=== PATIENT | male | born 1965 | race Caucasian/White ===

== ENCOUNTER 2018-07-27 17:17 | Inpatient (IN) | payer OTHER ==
[~2018-07-27] VITALS: Ht 165.1 cm; Wt 93.9 kg
[2018-07-27 17:53] VITALS: BP 164/88
--- NOTE | 2018-07-27 17:59 | NUR ---
PT AMBULATED TO LOBBY WITH VSS.
[2018-07-27 18:59] LABS: BASOPHILS # (AUTO) 0.2 K/uL (0.00-0.22); BASOPHILS % (AUTO) 1.8 % (0.0-2.0); EOSINOPHILS # (AUTO) 2.1 K/uL (0-0.4); EOSINOPHILS % (AUTO) 24.4 % (0.0-4.0); HEMATOCRIT 47.5 % (36-52); HEMOGLOBIN 15.9 g/dL (12.0-18.0); LYMPHOCYTES # (AUTO) 3.5 K/uL (2.0-11.5); LYMPHOCYTES % (AUTO) 40.6 % (20.5-51.1); MEAN CORPUSCULAR HEMOGLOBIN 29 pg (27-31); MEAN CORPUSCULAR HGB CONC 33 g/dL (33-37); MEAN CORPUSCULAR VOLUME 87.8 fL (80-94); MONOCYTES % (AUTO) 11.8 % (1.7-9.3); NEUTROPHILS # (AUTO) 1.9 K/uL (1.8-7.7); NEUTROPHILS % (AUTO) 21.4 % (42.2-75.2); PLATELET COUNT (AUTO) 141 K/uL (140-450); RED BLOOD CELL COUNT(AUTO) 5.41 MIL/uL (4.20-6.10); RED CELL DISTRIBUTION WIDTH 12.9 % (11.6-13.7); WHITE BLOOD COUNT (AUTO) 8.7 K/uL (4.8-10.8)
[2018-07-27 19:08] LABS: ANION GAP 12.8 (8-16); CARBON DIOXIDE 26.1 mmol/L (21-32); CREATININE 0.7 mg/dL (0.7-1.3); POTASSIUM 3.9 mmol/L (3.5-5.1)
--- NOTE | 2018-07-27 19:52 | NUR ---
PT TO ER BED 11
--- NOTE | 2018-07-27 20:00 | NUR ---
PATIENT PRESENTS TO ED WITH C/O R LEG, CELLULITIS X 1 WEEK +ERYTHEMA X 1 DAY. PT DENIES N/V/D; SKIN IS PINK/WARM/DRY; AAOX4 WITH EVEN AND STEADY GAIT; LUNGS CLEAR BL; HR EVEN AND REGULAR; PT DENIES ANY FEVER, CP, SOB, OR COUGH AT THIS TIME; PATIENT STATES PAIN OF 8/10 AT THIS TIME; VSS; PATIENT POSITIONED FOR COMFORT; HOB ELEVATED; BEDRAILS UP X2; BED DOWN. ER MD MADE AWARE OF PT STATUS.
[2018-07-27] MEDS ORDERED: NACL 0.9% 1,000 ML IV ONE (21:28)
[2018-07-27] MEDS ORDERED: VANCOMYCIN 1,000 MG in DEXTROSE 5% 250 ML IV ONE (21:30)
--- NOTE | 2018-07-27 21:45 | NUR ---
PHLEB AT BEDSIDE DRAWING BLOOD/CULTURES
--- NOTE | 2018-07-27 21:58 | NUR ---
REVIEWED INDUCE SPUTUM CULTURE ORDER WITH DR EDIN PERALTA
[2018-07-27 22:06] LABS: ANION GAP 13.4 (8-16); CARBON DIOXIDE 25.6 mmol/L (21-32); CREATININE 0.7 mg/dL (0.7-1.3)
[2018-07-27 22:11] LABS: PROTHROMBIN TIME 11.4 secs (10.8-13.4)
[2018-07-27 22:12] LABS: ALBUMIN 3.7 g/dL (3.4-5.0); TOTAL BILIRUBIN 0.9 mg/dL (0.0-1.0)
[2018-07-27] MEDS ORDERED: VANCOMYCIN 1,000 MG VIAL ONE (22:15)
--- NOTE | 2018-07-27 23:56 | NUR ---
PATIENT CURRENTLY RESTING IN GURNEY, IN POSITION OF COMFORT. PATIENT GCS 15, AAOX4, BREATHING IS EVEN AND UNLABORED, EQUAL RISE AND FALL OF CHEST, NO ACUTE DISTRESS NOTED. PATIENT UPDATED WITH PLAN OF CARE, WILL CONTINUE TO MONITOR
[2018-07-28] LABS: APPEARANCE,URINE CLEAR (CLEAR); BILIRUBIN,URINE NEGATIVE (NEGATIVE); BLOOD, URINE NEGATIVE (NEGATIVE); COLOR,URINE YELLOW (YELLOW); LEUKOCYTE ESTERASE ,URINE NEGATIVE (NEGATIVE); NITRITE, URINE NEGATIVE (NEGATIVE); PH,URINE 5.5 (5.0-9.0); UGLUCOSE 3+ (NEGATIVE)
[2018-07-28 00:25] LABS: RBC,URINE 0-5 /HPF (0-5); WBC,URINE 0-5 /HPF (0-5)
[2018-07-28] MEDS ORDERED: ONDANSETRON 4 MG/2 ML VIAL IVP PRN (02:05)
[2018-07-28] MEDS ORDERED: LORazepam 2 MG/ML VIAL IVP PRN (02:05)
[2018-07-28] MEDS ORDERED: ACETAMINOPHEN 325 MG TAB PO PRN (02:05)
[2018-07-28] MEDS ORDERED: MORPHINE SULFATE 4 MG/ML SYR IVP PRN (02:05)
[2018-07-28] MEDS ORDERED: DEXTROSE 50% 50 ML SYR IVP PRN (02:15)
--- NOTE | 2018-07-28 02:58 | NUR ---
Patient will be admitted to care of RAYMUNDO. Admited to MS. Will go to room 108B. Belongings list completed. Report to MARYANN WELCH.
--- NOTE | 2018-07-28 03:00 | NUR ---
PT RECEIVED FROM KRISTEN CASE MANAGEMENT MANAGER NURSE. PT BROUGHT UP BY W/C TO ROOM 107 AND AMBULATED TO BED B WITH STEADY GAIT. PT IS AOX4 AND MALAWIAN SPEAKING PT CONTINENT OF B/B. HE HAS A DECOLORATION AND SMALL OPENING ON R LOWER LEG. MEASUREMENT IS 1CM X1CM AREA SCABBED WITH NO DRAINAGE. PT HAS IV SITE 22G ON R HAND AND FLUSHED PATENT. MRSA SWAB DONE.
[2018-07-28] MEDS: MORPHINE SULFATE 2 MG/ML SYR IVP PRN ×2 (04:17→20:46)
--- NOTE | 2018-07-28 04:30 | NUR ---
PT IN BED SIDE RAILS UP X2 AND BED IN LOW POSITION. PT C/O OF MODERATE PAIN GIVEN MORPHINE ORDERED FOR 09/28 PAIN. PT HAS IV FLUID OF N/S RUNNING AT 80MLS/HR. V/S IN NORMAL RANGE. ZOSYN HUNG ORDERED.
[2018-07-28 04:49] VITALS: BP 142/87
[2018-07-28] MEDS ORDERED: PIPERACILLIN/TAZOBACTAM 3.375 GM in DEXTROSE 5% 50 ML IV SCH (05:00)
[2018-07-28] MEDS: NACL 0.9% 1,000 ML IV SCH ×2 (05:24→14:35)
[2018-07-28] MEDS ORDERED: PIPERACILLIN/TAZOBACTAM 3.375 GM VIAL IV ONE (05:35)
--- NOTE | 2018-07-28 06:00 | NUR ---
F/S IS 174 PT GIVEN 4 UNITS OF HUMALOG PROTOCOL. NO S/S OF PAIN OR DISTRESS NOTED.
[2018-07-28] MEDS ORDERED: HYDROcodone/APAP 5/325 MG 1 TAB TAB ONE (06:26)
[2018-07-28] MEDS: BLOOD GLUCOSE MONITORING 1 DEV DEV FS SCH ×4 (06:29→20:40)
[2018-07-28] MEDS: INSULIN LISPRO SLIDING SCALE 100 UNITS/ML VIAL SUBQ PRN ×3 (06:32→20:49)
--- NOTE | 2018-07-28 07:25 | NUR ---
REPORT GIVEN TO EYAL WELCH DAYSHIFT NURSE AT BEDSIDE FOR CONTINUITY OF CARE, PT IN STABLE CONDITION.
--- NOTE | 2018-07-28 07:30 | NUR ---
RECEIVED HANDOFF REPORT FROM OIM ARCHITECT NURSE. PT IS AWAKE IN BED. IVF ARE INFUSING IV SITE SHOWS NO SIGNS OF INFILTRATION. ALL SAFETY MEASURES ARE IN PLACE. WILL CONTINUE TO MONITOR.
--- NOTE | 2018-07-28 08:22 | NUR ---
PATIENT HAS BEEN SCREENED AND CATEGORIZED MODERATE NUTRITION RISK. PATIENT WILL BE SEEN WITHIN 3-5 DAYS OF ADMISSION. 07/31/18JAN [address]
[2018-07-28 08:28] VITALS: BP 136/87
[2018-07-28] MEDS: ENOXAPARIN 40 MG/0.4 ML SYR SUBQ SCH (08:54)
--- NOTE | 2018-07-28 09:30 | NUR ---
FREQUENT ROUNDING ON PT. PT IS STABLE AND AWAKE IN BED, NO SIGNS OF DISTRESS. PT APPEARS IN STABLE CONDITION. IV INFUSING NS@ 80ML/HR. IV SITE IS PATENT AND NO SIGNS OF INFILTRATION. WILL CONTINUE TO MONITOR.
[2018-07-28] MEDS ORDERED: glipiZIDE 5 MG TAB PO SCH (10:51)
[2018-07-28] MEDS ORDERED: LISINOPRIL 20 MG TAB PO SCH (10:52)
--- NOTE | 2018-07-28 11:30 | NUR ---
FINGERSTICK BLOOD GLUCOSE 222. ADMINISTERED 4UNITS OF HUMALOG PER SLIDING SCALE. PT IS AWAKE IN BED AND STABLE. ALL SAFETY MEASURES ARE IN PLACE. WILL CONTINUE TO MONITOR.
--- NOTE | 2018-07-28 13:30 | NUR ---
FREQUENT ROUNDING ON PT. PT AWAKE IN BED RESTING QUIETLY. PT IS STABLE AND APPEARS IN NO DISTRESS, IV INFUSING AT 80ML/HR. IV SITE SHOWS NO SIGNS OF INFILTRATION. ALL SAFETY MEASURES ARE IN PLACE. WILL CONTINUE TO MONITOR.
--- NOTE | 2018-07-28 16:38 | NUR ---
FREQUENT ROUNDING ON PT. PT IS STABLE AND RESTING QUIETLY IN BED. IV IS INFUSING AT 80ML/HR. IV SITE SHOWS NO SIGN OF INFILTRATION. ALL SAFETY MEASURES ARE IN PLACE, WILL CONTINUE TO MONITOR.
[2018-07-28] MEDS: metFORMIN 850 MG TAB PO SCH (17:16)
--- NOTE | 2018-07-28 18:39 | NUR ---
FREQUENT ROUNDING ON PT. PT SITTING UP IN CHAIR IN ROOM EATING DINNER. IV IS INFUSING AT 80ML/HR WITH NO SIGNS OF INFILTRATION. PT HAD NO COMPLAINTS OF PAIN. PT IS STABLE AND APPEARS IN NO APPARENT DISTRESS. ALL SAFETY MEASURES ARE IN PLACE.
--- NOTE | 2018-07-28 19:26 | NUR ---
ENDORSED NIGHTSHIFT NURSE AT PT BEDSIDE. PT IS AWAKE IN BED AND APPEARS STABLE AND IN NO APPARENT DISTRESS.
--- NOTE | 2018-07-28 19:27 | NUR ---
RECEIVED BEDSIDE REPORT FROM WARE DRESSER NURSE. PT IS AWAKE IN BED, ABLE TO AMBULATE W/ ASSISTANCE. W/ IVF ON R HAND G 22. INFUSING WELL,IV SITE SHOWS NO SIGNS OF INFILTRATION. ALL SAFETY MEASURES ARE IN PLACE. WILL CONTINUE TO MONITOR.
--- NOTE | 2018-07-28 20:50 | NUR ---
PAIN MEDS GIVEN ORDERED. C/O 09/28 PAIN R LEG
--- NOTE | 2018-07-28 23:00 | NUR ---
FREQUENT ROUNDING DONE, PT TRYING TO SLEEP. NO COMPLAINTS AT THIS TIME
--- NOTE | 2018-07-29 01:36 | NUR ---
FREQUENT ROUNDING DONE, PT SLEEPING.NO COMPLAINTS AT THIS TIME.
[2018-07-29] MEDS: NACL 0.9% 1,000 ML IV SCH ×3 (03:05→21:09)
[2018-07-29] MEDS: INSULIN LISPRO SLIDING SCALE 100 UNITS/ML VIAL SUBQ PRN ×2 (06:08→16:53)
[2018-07-29] MEDS: BLOOD GLUCOSE MONITORING 1 DEV DEV FS SCH ×4 (06:11→20:56)
[2018-07-29] MEDS: MORPHINE SULFATE 2 MG/ML SYR IVP PRN (06:17)
[2018-07-29] MEDS ORDERED: glipiZIDE 5 MG TAB PO SCH (06:30)
[2018-07-29 07:02] LABS: BASOPHILS # (AUTO) 0.1 K/uL (0.00-0.22); BASOPHILS % (AUTO) 1.9 % (0.0-2.0); EOSINOPHILS # (AUTO) 1.8 K/uL (0-0.4); EOSINOPHILS % (AUTO) 26.2 % (0.0-4.0); HEMATOCRIT 46.6 % (36-52); HEMOGLOBIN 15.7 g/dL (12.0-18.0); LYMPHOCYTES # (AUTO) 2.8 K/uL (2.0-11.5); LYMPHOCYTES % (AUTO) 41.2 % (20.5-51.1); MEAN CORPUSCULAR HEMOGLOBIN 30 pg (27-31); MEAN CORPUSCULAR HGB CONC 34 g/dL (33-37); MEAN CORPUSCULAR VOLUME 89.1 fL (80-94); MONOCYTES # (AUTO) 0.6 K/uL (0.8-1.0); MONOCYTES % (AUTO) 8.6 % (1.7-9.3); NEUTROPHILS # (AUTO) 1.5 K/uL (1.8-7.7); NEUTROPHILS % (AUTO) 22.1 % (42.2-75.2); PLATELET COUNT (AUTO) 132 K/uL (140-450); RED BLOOD CELL COUNT(AUTO) 5.23 MIL/uL (4.20-6.10); WHITE BLOOD COUNT (AUTO) 6.8 K/uL (4.8-10.8)
[2018-07-29 07:24] LABS: ANION GAP 12.6 (8-16); POTASSIUM 4.6 mmol/L (3.5-5.1)
[2018-07-29 07:25] LABS: CREATININE 0.6 mg/dL (0.7-1.3)
[2018-07-29 07:26] LABS: ALBUMIN 3.3 g/dL (3.4-5.0); MAGNESIUM 1.7 mg/dL (1.8-2.4); TOTAL BILIRUBIN 1.1 mg/dL (0.0-1.0)
--- NOTE | 2018-07-29 07:32 | NUR ---
RECEIVED BEDSIDE REPORT FROM SALES ADMINISTRATION MANAGER RN FOR CONTINUITY OF CARE. PT IN STABLE CONDITION. STATES TOLERABLE 5/10 PAIN AT RT LEG- CELLULITIS. NO S/S DISTRESS. RESPIRATIONS EVEN AND UNLABORED. HEART RHYTHM REGULAR. ACTIVE BS IN ALL QUADRANTS. ABDOMEN SOFT AND NON-DISTENDED. SKIN INTACT. PT IS AMBULATORY WITHOUT ASSIST. IV SITE PATENT AND ASYMPTOMATIC, INFUSING IVF PER MD ORDERS. ALL SAFETY PRECAUTIONS IN PLACE, WILL CONTINUE TO MONITOR.
[2018-07-29 08:00] VITALS: BP 149/87
[2018-07-29] MEDS: LISINOPRIL 20 MG TAB PO SCH (08:39)
[2018-07-29] MEDS: metFORMIN 850 MG TAB PO SCH ×2 (08:39→16:42)
[2018-07-29] MEDS: ENOXAPARIN 40 MG/0.4 ML SYR SUBQ SCH (08:40)
--- NOTE | 2018-07-29 09:11 | NUR ---
NOTIFIED DR. VELEZ OF MG2+ 1.7. RECEIVED ORDERS.
[2018-07-29] MEDS ORDERED: MAG SULF 2000 MG/WATER PREMIX 50 ML IV SCH (10:00)
--- NOTE | 2018-07-29 10:07 | NUR ---
CM NOTE I SPOKE WITH ARABELLA OF [facility]# [phone] TO SET UP PATIENT'S OUTPATIENT FOLLOW UP APPOINTMENT. THE PATIENT WILL BE SEEN BY DR. QING ANTONIO'S FUNDS TRANSFER CLERK TIERNEY (BECAUSE DR. ANTONIO'S SCHEDULE IS BOOKED UNTIL THE END OF AUGUST) ON AUGUST 03, 2018 2:00 PM AT THE CLINIC AT [address] [place] [address]. I GAVE THE PATIENT HIS OUTPATIENT FOLLOW UP SCHEDULE.
--- NOTE | 2018-07-29 12:03 | NUR ---
PATIENT SITTING UP IN BED, NO C/O PAIN OR DISCOMFORT. ALL SAFETY PRECAUTIONS IN PLACE, WILL CONTINUE TO MONITOR.
--- NOTE | 2018-07-29 14:28 | NUR ---
PT SLEEPING IN BED, RESPIRATIONS EVEN AND UNLABORED. ALL SAFETY PRECAUTIONS IN PLACE, WILL CONTINUE TO MONITOR.
[2018-07-29 16:00] VITALS: BP 129/78
[2018-07-29] MEDS: glipiZIDE 5 MG TAB PO SCH (16:42)
--- NOTE | 2018-07-29 16:59 | NUR ---
PATIENT STATES TOLERABLE RLE PAIN, DENIES NEED FOR PAIN MEDICATION.
--- NOTE | 2018-07-29 19:10 | NUR ---
ENDORSED POC TO SURGEON/PRESIDENT RN. PT IN STABLE CONDITION.
--- NOTE | 2018-07-29 19:12 | NUR ---
RECEIVED BEDSIDE REPORT FROM AM SHIFT NURSE. PT IS AWAKE IN BED, ABLE TO AMBULATE W/ ASSISTANCE. W/ IVF ON R HAND G 22. INFUSING WELL, IV SITE SHOWS NO SIGNS OF INFILTRATION. ALL SAFETY MEASURES ARE IN PLACE. WILL CONTINUE TO MONITOR.
--- NOTE | 2018-07-29 20:56 | NUR ---
BS LEVEL TAKEN 129MG/DL, NO INSULIN COVERAGE. PT TRYING TO SLEEP IN BED SUPINE. NO PAIN, NO SIGNS OF DISTRESS.
--- NOTE | 2018-07-30 03:15 | NUR ---
CHECKED ON PT, PT AWAKE, TALKING TO HIS ROOMMATE AT A- BED. PT NO COMPLAINTS OF PAIN NOR RESPIRATORY DISTRESS AT THIS TIME.
[2018-07-30 04:00] VITALS: BP 134/80
[2018-07-30] MEDS: BLOOD GLUCOSE MONITORING 1 DEV DEV FS SCH (06:33)
[2018-07-30] MEDS: glipiZIDE 5 MG TAB PO SCH (06:34)
--- NOTE | 2018-07-30 07:20 | NUR ---
ENDORSED TO NEXT SHIFT FOR CONTINUITY OF CARE. PT IN STABLE CONDITION AT THIS TIME.
--- NOTE | 2018-07-30 07:48 | NUR ---
ENDORSED TO NEXT SHIFT FOR CONTINUITY OF CARE. PT IN STABLE CONDITION AT THIS TIME. Addendum: 07/30/18 at 0750 by Sandy Loomis RN PLS DELETE NOTE. WRONG TIME.
--- NOTE | 2018-07-30 07:50 | NUR ---
RECEIVED BEDSIDE REPORT FROM RESERVOIR CARETAKER RN FOR CONTINUITY OF CARE. PT IN STABLE CONDITION. NO C/O PAIN OR DISCOMFORT AT THIS TIME. NO S/S DISTRESS. RESPIRATIONS EVEN AND UNLABORED. HEART RHYTHM REGULAR. ACTIVE BS IN ALL QUADRANTS. ABDOMEN SOFT AND NON-DISTENDED. RLL CELLULITIS WITH SCAB. PT IS AMBULATORY WITHOUT ASSIST. IV SITE PATENT AND ASYMPTOMATIC, INFUSING IVF PER MD ORDERS. ALL SAFETY PRECAUTIONS IN PLACE, WILL CONTINUE TO MONITOR.
[2018-07-30] MEDS: metFORMIN 850 MG TAB PO SCH (08:56)
[2018-07-30] MEDS: LISINOPRIL 20 MG TAB PO SCH (08:56)
[2018-07-30] MEDS: ENOXAPARIN 40 MG/0.4 ML SYR SUBQ SCH (08:57)
--- NOTE | 2018-07-30 09:06 | NUR ---
PAGED DR. YEUNG- NO CBC OR CMP ORDERED FOR AM LABS TODAY.
--- NOTE | 2018-07-30 09:11 | NUR ---
PER DR. YEUNG, NO NEED TO ORDER AM LABS.
[2018-07-30] MEDS ORDERED: GLIP5TAB4 PO (10:01)
[2018-07-30] MEDS ORDERED: METF500T PO (10:01)
[2018-07-30] MEDS ORDERED: CLIN300C2 PO (10:01)
--- NOTE | 2018-07-30 10:13 | NUR ---
RECEIVED D/C ORDER. PT IS AWARE. PT STATES HE WILL CALL SON TO PICK HIM UP. ASKED PT TO INFORM ME OF ETA PICKUP AFTER HE SPEAKS WITH SON.
--- NOTE | 2018-07-30 10:30 | NUR ---
PATIENT STATES HIS FLU VACCINE AND PNEUMOVAX UP TO DATE.
--- NOTE | 2018-07-30 11:25 | NUR ---
DISCHARGE PAPERWORK, INCLUDING F/U APPOINTMENT DETAILS, GIVEN TO PATIENT. NEW PRESCRIPTION/MEDICATION TEACHING AND MEDICATION RECONCILIATION TEACHING GIVEN TO PATIENT. PHOTO TAKEN OF RLE CELLULITIS. CARE FOR CELLULITIS TEACHING GIVEN. PT IS SWISS AND HUNGARIAN SPEAK BUT PREFERS SWISS. PREFERS FAMILY MEMBER AT BEDSIDE TO TRANSLATE. PATIENT AND FAMILY MEMBER AT BEDSIDE VERBALIZED COMPLETE UNDERSTANDING OF ALL D/C TEACHING. IV SITE REMOVED WITH MINIMAL BLOOD LOSS AND LUMEN COMPLETELY INTACT. ID BANDS REMOVED. ALL PERSONAL BELONGINGS ARE WITH PATIENT. PATIENT DISCHARGED WILL GO HOME WITH FAMILY MEMBER VIA PRIVATE VEHICLE.
== END 2018-07-30 11:25 | disposition home or self-care (01) | DRG 383 ==
LOC: MED 17:17 → MTU 07-28 02:11
PROVIDERS: ADMIT Internal Medicine Pulmonary Disease; ATTEND Internal Medicine Pulmonary Disease
DX: L03.115 Cellulitis of right lower limb (principal); E11.65 Type 2 diabetes mellitus with hyperglycemia; E66.9 Obesity, unspecified; E78.5 Hyperlipidemia, unspecified; I10 Essential (primary) hypertension; Z91.14 Patient's other noncompliance with medication regimen; Z89.021 Acquired absence of right finger(s); Z68.34 Body mass index [BMI] 34.0-34.9, adult
CPT/HCPCS: 36415; 36600; 71045; 73590; 80048; 80053; 81001; 82803; 82948; 83036; 83605; 83735; 85025; 85610; 85651; 85730; 86140; 87040; 87081; 87086; 96365; 96366; 99285; J0696; J1650; J1815; J2270; J2543; J3370; J3475; J7030; J7060; Q0092

== ENCOUNTER 2020-02-20 16:05 | Emergency (ER) | payer OTHER ==
[~2020-02-20] VITALS: Ht 167.6 cm; Wt 93.9 kg
[~2020-02-20 16:05] MED LIST: CLIN300C2 PO; GLIP5TAB4 PO; METF500T PO
[2020-02-20 16:21] VITALS: BP 158/100
--- NOTE | 2020-02-20 16:30 | NUR ---
C/O LEFT HANSEN PAIN X2 WEEKS R/T CELLULITIS S/P PIECE OF METAL HITTING HANSEN DURING YARD WORK, PAIN IS 5/10. AREA IS INFLAMED/SWOLLEN AND RED. DENIES FEVER/CHILLS
--- NOTE | 2020-02-20 16:51 | NUR ---
XRAY IS AT BEDSIDE.
[2020-02-20 17:30] VITALS: BP 133/85
--- NOTE | 2020-02-20 17:30 | NUR ---
Patient discharged with v/s stable. Written and verbal after care instructions given and explained. Patient alert, oriented and verbalized understanding of instructions. Ambulatory with steady gait. All questions addressed prior to discharge. ID band removed. Patient advised to follow up with PMD. Rx of Mupirocin, Naprosyn, and cephalexin given. Patient educated on indication of medication including possible reaction and side effects. Opportunity to ask questions provided and answered.
== END 2020-02-20 17:30 | disposition home or self-care (01) ==
LOC: MED 16:05
DX: L03.116 Cellulitis of left lower limb (principal); E11.9 Type 2 diabetes mellitus without complications; I10 Essential (primary) hypertension; Z79.84 Long term (current) use of oral hypoglycemic drugs; Z79.899 Other long term (current) drug therapy
CPT/HCPCS: 73590; 82948; 99283; Q0092

== ENCOUNTER 2020-03-20 16:59 | Emergency (ER) | payer OTHER ==
[~2020-03-20] VITALS: Ht 172.7 cm; Wt 92.1 kg
[2020-03-20 17:10] VITALS: BP 113/80
--- NOTE | 2020-03-20 17:30 | NUR ---
C/O SCAB TO HANSEN X2 MONTHS, MILDLY PAINFUL 05/31. PT STATES HE SAW HIS PCP AND WAS TOLD IT WILL GO AWAY ON ITS OWN. DENIES FEVER.
--- NOTE | 2020-03-20 17:52 | NUR ---
Patient discharged with v/s stable. Written and verbal after care instructions given and explained. Patient alert, oriented and verbalized understanding of instructions. Ambulatory with steady gait. All questions addressed prior to discharge. ID band removed. Patient advised to follow up with PMD. Rx of BACITRACIN & KEFLEX given. Patient educated on indication of medication including possible reaction and side effects. Opportunity to ask questions provided and answered.
[2020-03-20 17:53] VITALS: BP 113/80
== END 2020-03-20 17:52 | disposition home or self-care (01) ==
LOC: MED 16:59
DX: L98.499 Non-pressure chronic ulcer of skin of other sites with unspecified severity (principal); E11.9 Type 2 diabetes mellitus without complications; I10 Essential (primary) hypertension; Z79.84 Long term (current) use of oral hypoglycemic drugs; Z79.899 Other long term (current) drug therapy
CPT/HCPCS: 82948; 99283

== ENCOUNTER 2021-11-09 06:48 | Emergency (ER) | payer OTHER ==
[~2021-11-09] VITALS: Ht 162.6 cm; Wt 87.7 kg
[~2021-11-09 06:48] MED LIST changes: +GLIP5TAB14 PO; -GLIP5TAB4 PO; +METF-346 PO; -METF500T PO
[2021-11-09 06:55] VITALS: BP 180/106
--- NOTE | 2021-11-09 07:06 | NUR ---
pt to bed 11.
--- NOTE | 2021-11-09 07:09 | NUR ---
ermd at bedside.
--- NOTE | 2021-11-09 07:49 | NUR ---
56 Y/O MAN BIB SELF WITH C/O LEFT EAR PAIN WITH DECREASED HEARING ABILITY. PT STATES THE PAIN OCCURED YESTERDAY AND IT COMES AND GOES. BRIGHT RED BLOOD NOTED IN LEFT EAR WHICH STARTED THIS MORNING. DENIES N/V/D; SKIN IS PINK/WARM/DRY; AAOX4; ENGLISH SPEAKING; AMBULATES WITH EVEN AND STEADY GAIT; PATIENT STATES PAIN OF 7/10 AT THIS TIME; PATIENT POSITIONED FOR COMFORT; HOB ELEVATED; BEDRAILS UP X1; BED DOWN. ER MD MADE AWARE OF PT STATUS. NKA PMH: DIABETES TYPE 2 MEDS: DENIES
[2021-11-09 08:05] LABS: HEMATOCRIT 49.2 % (36-52); HEMOGLOBIN 16.5 g/dL (12.0-18.0); MEAN CORPUSCULAR HEMOGLOBIN 30 pg (27-31); MEAN CORPUSCULAR HGB CONC 34 g/dL (33-37); MEAN CORPUSCULAR VOLUME 88.7 fL (80-94); PLATELET COUNT (AUTO) 141 K/uL (140-450); RED BLOOD CELL COUNT(AUTO) 5.54 MIL/uL (4.20-6.10); RED CELL DISTRIBUTION WIDTH 12.9 % (11.6-13.7); WHITE BLOOD COUNT (AUTO) 14.5 K/uL (4.8-10.8)
[2021-11-09 08:21] LABS: CREATININE 0.6 mg/dL (0.6-1.3)
[2021-11-09 08:24] LABS: EOSINOPHILS % (MANUAL) 23 % (0-4); LYMPHOCYTES % (MANUAL) 19 % (20-46); MONOCYTES % (MANUAL) 7 % (5-12)
[2021-11-09] MEDS ORDERED: NACL 0.9% 1,000 ML IV ONE ×2 (09:15→11:20)
--- NOTE | 2021-11-09 10:08 | NUR ---
pt taken to ct at this time via jyothi
[2021-11-09] MEDS ORDERED: ONDANSETRON 4 MG/2 ML VIAL IVP ONE ×2 (11:20→12:45)
[2021-11-09] MEDS ORDERED: MORPHINE SULFATE 4 MG/ML SYR IVP ONE (11:20)
[2021-11-09] MEDS ORDERED: VANCOMYCIN 1,000 MG in DEXTROSE 5% 250 ML IV ONE (11:25)
[2021-11-09] MEDS ORDERED: PIPERACILLIN/TAZOBACTAM 4.5 GM in DEXTROSE 5% 100 ML IV ONE (11:25)
[2021-11-09] MEDS ORDERED: PIPERACILLIN/TAZOBACTAM 4.5 GM VIAL IV ONE (12:17)
--- NOTE | 2021-11-09 13:22 | NUR ---
Patient to be transferred to [facility] ED. Is being transferred due to HIGHER LEVEL OF CARE. Receiving facility has accepting physician and available space. ER physician has signed transfer form. Patient or responsible democrat has agreed to transfer and signed form. Patient belongings inventoried and will be sent with patient. Copy of nursing notes, lab reports, EKG, Physicians Orders and X-rays to be sent with patient. Report called to REBEKAH BANUELOS at receiving facility. [facility] ambulance service has been called for transfer. ETA is 10 MINUTES.
[2021-11-09 14:03] VITALS: BP 147/82
--- NOTE | 2021-11-09 14:06 | NUR ---
amr here for transport to [facility]
== END 2021-11-09 14:06 | disposition short-term general hospital (02) ==
LOC: MED 06:48
DX: H60.22 Malignant otitis externa, left ear (principal); Z20.822 Contact with and (suspected) exposure to COVID-19; E11.65 Type 2 diabetes mellitus with hyperglycemia; I10 Essential (primary) hypertension; Z79.4 Long term (current) use of insulin; Z79.899 Other long term (current) drug therapy
CPT/HCPCS: 36415; 70482; 80048; 82948; 83605; 85025; 85651; 86140; 87426; 96361; 96365; 96366; 96375; 96376; 99285; J2270; J2405; J2543; Q9967; J7030

== ENCOUNTER 2022-02-20 11:36 | Emergency (ER) | payer OTHER ==
[~2022-02-20] VITALS: Ht 167.6 cm; Wt 90.3 kg
[2022-02-20 12:11] VITALS: BP 142/85
[2022-02-20] MEDS ORDERED: KETOROLAC 30 MG/ML VIAL IM ONE (13:15)
--- NOTE | 2022-02-20 14:33 | NUR ---
Patient with + relief to pain.
[2022-02-20] MEDS ORDERED: LID5T TP (14:36)
[2022-02-20] MEDS ORDERED: AMOX1TAB8 PO (14:36)
[2022-02-20] MEDS ORDERED: CYCL-711 PO (14:36)
[2022-02-20] MEDS ORDERED: NAPR500E1 PO (14:36)
[2022-02-20 14:58] VITALS: BP 144/85
--- NOTE | 2022-02-20 14:58 | NUR ---
Patient discharged with v/s stable. Written and verbal after care instructions given. Patient alert, oriented and verbalized understanding of instructions. Ambulatory with steady gait. All questions addressed prior to discharge. ID band removed. Patient advised to follow up with PMD. Rx of Amox-Clav 875-125mg Tab, Flexeril, Lidocaine and Naproxen given. Opportunity to ask questions provided and answered.
--- NOTE | 2022-02-20 15:00 | NUR ---
The patient's care was reviewed and supervised by Luis Garcia RN.
== END 2022-02-20 14:58 | disposition home or self-care (01) ==
LOC: MED 11:36
DX: M54.50 Low back pain, unspecified (principal); I10 Essential (primary) hypertension; E11.9 Type 2 diabetes mellitus without complications; Z79.4 Long term (current) use of insulin; Z79.899 Other long term (current) drug therapy
CPT/HCPCS: 81002; 96372; 99283; J1885

== ENCOUNTER 2022-07-03 09:43 | Emergency (ER) | payer OTHER ==
[~2022-07-03] VITALS: Ht 167.6 cm; Wt 95.3 kg
[~2022-07-03 09:43] MED LIST changes: +AMOX1TAB8 PO; +CYCL-711 PO; +LID5T TP; +NAPR500E1 PO
[2022-07-03 10:03] VITALS: BP 153/72
--- NOTE | 2022-07-03 10:06 | NUR ---
PATIENT C/O LEFT EAR PAIN (05/31), THROBBING IN NATURE, ONSET YESTERDAY. DENIES HEARING CHANGES, DENIES DRAINAGE, DENIES FEVER. PMH: HTN, HLD, DM NKA
--- NOTE | 2022-07-03 10:08 | NUR ---
ALSO ENDORSING PRIOR HISTORY OF LEFT EAR SURGERY 7-8 MONTHS AGO.
[2022-07-03] MEDS ORDERED: ACET-2619 PO (10:28)
[2022-07-03 10:48] VITALS: BP 162/86
== END 2022-07-03 10:50 | disposition home or self-care (01) ==
LOC: MED 09:43
DX: H92.02 Otalgia, left ear (principal); H61.23 Impacted cerumen, bilateral; I10 Essential (primary) hypertension; E11.9 Type 2 diabetes mellitus without complications; Z79.899 Other long term (current) drug therapy; Z79.1 Long term (current) use of non-steroidal anti-inflammatories (NSAID); Z79.2 Long term (current) use of antibiotics
CPT/HCPCS: 99282

== ENCOUNTER 2022-08-05 09:28 | Emergency (ER) | payer OTHER ==
[~2022-08-05] VITALS: Ht 167.6 cm; Wt 97.5 kg
[~2022-08-05 09:28] MED LIST changes: +ACET-2619 PO
[2022-08-05 09:34] VITALS: BP 141/77
--- NOTE | 2022-08-05 09:50 | NUR ---
56YO MALE PT C/O 2/10 L EAR PAIN X3DAYS. REPORTS SUDDEN ONSET AND STATES 2 NOSE BLEEDS LAST NIGHT. NO ACTIVE BLEEDING AT THIS TIME. DENIES RECENT INJURY, FEVER, CHILLS, RINGING OR DECREASE IN HEARING. EAR W/O SWELLING. PT AAOX4, NO VISIBLE DISTRESS. HX: HTN, DIABETES NKA
--- NOTE | 2022-08-05 09:53 | NUR ---
MD ISIDRO AT BEDSIDE FOR EVALUATION
[2022-08-05 10:26] VITALS: BP 138/77
--- NOTE | 2022-08-05 10:26 | NUR ---
Patient discharged with v/s stable. Written and verbal after care instructions FOR EARACHE given and explained. Patient verbalized understanding. Ambulatory with steady gait. All questions addressed prior to discharge. Advised to follow up with PMD.
--- NOTE | 2022-08-05 10:27 | NUR ---
The patient's care was reviewed and supervised by Monica Gomez, RN, RN.
== END 2022-08-05 10:26 | disposition home or self-care (01) ==
LOC: MED 09:28
DX: H92.02 Otalgia, left ear (principal); R04.0 Epistaxis; Z79.899 Other long term (current) drug therapy
CPT/HCPCS: 99281

== ENCOUNTER 2023-02-06 18:16 | Emergency (ER) | payer OTHER ==
[~2023-02-06] VITALS: Ht 167.6 cm; Wt 98.2 kg
[2023-02-06 18:33] VITALS: BP 159/80; PULSE 82; RESP 20; TEMP 98.1; O2SAT 98
[2023-02-06] MEDS ORDERED: CEPH250C16 PO (19:05)
[2023-02-06] MEDS ORDERED: IBUP-2809 PO (19:34)
[2023-02-06] MEDS ORDERED: IBUPROFEN 400 MG TAB PO ONE (19:35)
[2023-02-06 20:24] VITALS: PULSE 82; RESP 20; TEMP 98.1; O2SAT 98
== END 2023-02-06 20:24 | disposition home or self-care (01) ==
LOC: MED 18:16
DX: E11.621 Type 2 diabetes mellitus with foot ulcer (principal); L03.115 Cellulitis of right lower limb; I10 Essential (primary) hypertension; Z79.4 Long term (current) use of insulin; Z79.899 Other long term (current) drug therapy
CPT/HCPCS: 99283